=== PATIENT | male | born 1960 | race Caucasian/White ===

== ENCOUNTER 2016-05-29 17:07 | Emergency (ER) | payer MEDICAID ==
[2016-05-29] MEDS ORDERED: SODIUM CHLORIDE 0.9% 1,000 ML ONE (18:03)
[2016-05-29] MEDS ORDERED: MULTIVITS ADULT INJ 10 ML, THIAMINE 100 MG, FOLIC ACID INJ 1 MG in SODIUM CHLORIDE 0.9%... IV ONE ×3 (18:05)
[2016-05-29] MEDS ORDERED: LORAZEPAM 2 MG/ML VIAL ONE (20:35)
== END 2016-05-29 21:14 | disposition home or self-care (01) ==
LOC: ER 17:07
DX: F10.129 Alcohol abuse with intoxication, unspecified (principal); F10.229 Alcohol dependence with intoxication, unspecified; Z72.89 Other problems related to lifestyle; Z79.899 Other long term (current) drug therapy; F17.210 Nicotine dependence, cigarettes, uncomplicated
CPT/HCPCS: 36415; 70450; 80053; 80320; 83690; 85025; 85610; 85730; 96361; 96365; 96366; 96375